=== PATIENT | male | born 1985 | race Caucasian/White ===

== ENCOUNTER 2019-10-11 09:25 | Day surgery (SDC) | payer BC, OTHER ==
[~2019-10-11 09:25] MED LIST: Lactated Ringers 1,000 ML IV SCH
[2019-10-11] MEDS ORDERED: fentaNYL 100 MCG/2 ML SDV ONE (10:08)
[2019-10-11] MEDS ORDERED: Propofol 200 MG/20 ML SDV ONE (10:08)
[2019-10-11 12:49] VITALS: BP 128/52; PULSE 65
--- NOTE | 2019-10-11 14:17 | OR ---
PREOPERATIVE DIAGNOSES: 1. Intermittent dysphagia. 2. Esophageal reflux. POSTOPERATIVE DIAGNOSES: 1. Intermittent dysphagia. 2. Esophageal reflux. PROCEDURE PERFORMED: Esophagogastroduodenoscopy with biopsies. FINDINGS: 1. Grossly normal duodenum examined up to D3. 2. Antritis, biopsied for H. pylori. 3. Esophageal hiatus, Hill grade 2. 4. Z-line at 40 cm. 5. No esophagitis, random esophageal biopsies obtained for evaluation of possible eosinophilic esophagitis. ANESTHESIA: MAC anesthesia. COMPLICATIONS: None. BLOOD LOSS: Minimal. INDICATIONS FOR PROCEDURE: Mr. Zamudio is a 34-year-old male who tells me he has had heartburn ever since he was a teenager. It is worse with spicy food. He has been on a PPI for many years and it intermittently helps him. His main complaint today is that he feels like something gets stuck in his upper throat if he has not chewed well. This does not happen often, and it is usually with something like nuts, but he otherwise has been eating and drinking normally. He has no nausea or vomiting. He does not have significant epigastric discomfort. He was recently switched to Protonix about a month ago, but does not really think that this is helping much. He has never had an upper endoscopy. DETAILS OF PROCEDURE: Informed consent was obtained. The patient was brought to the procedure room. MAC anesthesia was induced by Anesthesia colleagues. A bite block was placed. The endoscope was introduced into the patient's mouth through the upper esophageal sphincter and down the esophagus into the stomach. The pylorus was intubated. The duodenum was examined up to D3, which was unremarkable. There was some enteritis present in the stomach. Biopsies were obtained and sent for H. pylori. On retroflexed view, there was Hill grade 2 anatomy. There was no ulceration or other abnormalities of the stomach. On withdrawal of the scope, the Z-line was at 40 cm. There was no evidence of Lewis's esophagus and there was no esophagitis throughout the esophagus. We did obtain biopsies to rule out eosinophilic esophagitis. There was no narrowing or lesions anywhere in the esophagus that could explain his intermittent dysphagia. The endoscope was then roly julieth. The patient was awoken from MAC anesthesia by Anesthesia colleagues without incident. I did discuss with him that he may be a candidate for anti-reflux surgery and he would like to think about this. He will see me in [facility] if he wants to have a further conversation about this operation. PATHOLOGY: A) Stomach, antrum, biopsy Reactive gastropathy with focal intestinalization No Helicobacter pylori identified B) Esophagus, biopsy No specific pathologic diagnosis Lewis's specialized mucosa is not identified Referral placed to GI in [place] to discuss need for surveillance of stomach given focal intestinalization. Patient should see me in clinic if he wants to have a further discussion about antireflux surgery. RKM: 10/11/2019 11:07:53 MODL: 10/11/2019 13:46:44 /[id number] LEONIDES
--- NOTE | 2019-10-19 11:12 | LETTER ---
10/18/2019 RE: JESSICA PATY ROBB : 1985 [address] [id number] [place] [address] [place] [id number] Dear Robb: I am writing to inform you of the pathology results of your recent upper endoscopy. We did not find a reason for your occasional trouble swallowing either by visualizing your esophagus or on any of the biopsies that were taken of your esophagus. Inside of your stomach, we also took some biopsies. 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 This finding is not cancer, but it may increase your lifetime risk of developing stomach cancer. Some patients require interval surveillance with upper endoscopies. I have placed a referral for you to see a GI specialist in [place] for further discussion regarding these findings. The GI specialist will make recommendations about whether or not you need ongoing surveillance of your stomach. Should you need surveillance, we are happy to do that in [place]. You also may be a candidate for anti-reflux surgery, which we discussed after your procedure. This is an operation that is designed to eliminate your reflux symptoms and hopefully allow you to completely get off your antiacid medications. Please ask your primary physician to have you see me in [facility] if you would like to have a conversation about this in some more detail. Warmest regards,
== END 2019-10-11 12:05 | disposition home or self-care (01) ==
LOC: VM.SDS 09:25
PROVIDERS: ATTEND Student in an Organized Health Care Education/Training Program
DX: K21.9 Gastro-esophageal reflux disease without esophagitis (principal); K52.89 Other specified noninfective gastroenteritis and colitis; K31.89 Other diseases of stomach and duodenum; I10 Essential (primary) hypertension; Z79.899 Other long term (current) drug therapy; Z11.59 Encounter for screening for other viral diseases
CPT/HCPCS: 00731; 43239; 87635; J2704; J3010; J7120; U0002